=== PATIENT | male | born 1935 | race Caucasian/White ===

== ENCOUNTER 2022-03-27 12:26 | Inpatient (IN) | payer OTHER ==
[~2022-03-27] VITALS: Ht 177.8 cm; Wt 95.4 kg
[~2022-03-27 12:26] MED LIST: AMLO10 PO; CALCIUM; HCTZ; LISINOPRIL; [UNRECOGNIZED DRUG - OTHER]
[2022-03-27 12:44] LABS: BASOPHILS ABSOLUTE AUTO 0.04 K/mm3 (0.00-0.23); BASOPHILS PERCENT AUTO 0 % (0-2); EOSINOPHILS ABSOLUTE AUTO 0.13 K/mm3 (0.00-0.68); EOSINOPHILS PERCENT AUTO 1 % (0-6); Hematocrit 43.5 % (37.0-53.0); IMMATURE GRAN ABSOLUTE AUTO 0.04 K/mm3 (0.00-0.10); IMMATURE GRAN PERCENT AUTO 0 % (0-1); LYMPHOCYTES ABSOLUTE AUTO 2.57 K/mm3 (0.84-5.20); LYMPHOCYTES PERCENT AUTO 27 % (21-46); MONOCYTES ABSOLUTE AUTO 0.87 K/mm3 (0.16-1.47); MONOCYTES PERCENT AUTO 9 % (4-13); Mean Corpuscular HGB 30.9 pg (26.0-34.0); Mean Corpuscular HGB Conc 34.5 g/dL (31.5-36.5); Mean Corpuscular Volume 90 fL (80-100); Mean Platelet Volume 10.7 fL (9.1-12.4); NEUTROPHILS ABSOLUTE AUTO 5.91 K/mm3 (1.96-9.15); NEUTROPHILS PERCENT AUTO 62 % (41-73); Platelet Count 177 K/mm3 (150-400); RDW Coefficient Variation 13.6 % (11.7-14.2); RDW Standard Deviation 44.9 fL (35.1-46.3); Red Blood Cell Count 4.86 M/mm3 (4.30-5.90); White Blood Cell Count 9.56 K/mm3 (4.00-11.30)
[2022-03-27 13:11] LABS: Albumin, Blood 3.8 g/dL (3.4-5.0); Albumin/Globulin Ratio 1.2 (0.8-1.8); Bun/Creatinine Ratio 20.6 (12.0-20.0); Calcium, Blood 8.8 mg/dL (8.5-10.1); Creatinine, Blood 1.02 mg/dL (0.60-1.20); Globulin, Blood 3.3 g/dL (2.2-4.0); Potassium, Blood 3.4 mmol/L (3.5-5.5); Total Protein, Blood 7.1 g/dL (6.4-8.2)
[2022-03-27] MEDS ORDERED: ATOR10 PO (13:11)
[2022-03-27] MEDS ORDERED: CHLO25B PO (13:11)
[2022-03-27] MEDS ORDERED: FINA5 PO (13:12)
[2022-03-27] MEDS ORDERED: FURO20 PO (13:13)
[2022-03-27] MEDS ORDERED: LISI20 PO (13:14)
[2022-03-27] MEDS ORDERED: POTCHL20ER (13:16)
[2022-03-27] MEDS ORDERED: OMEPRAZOLE20 M1 PO (13:17)
[2022-03-27] MEDS ORDERED: LACT (13:21)
[2022-03-27 13:29] LABS: International Normalized Ratio 1.09; Prothrombin Time Results 11.4 Sec (9.7-11.5)
--- NOTE | 2022-03-27 16:46 | NUR ---
GOT REPORT FROM SHIVA. PT A&O TRANSFERED VIA iLike. FAMILY NOT PRESENT. PT ARRIVED @ 1625 AND TRANSFERED TO BED VIA SLIDE SHEET.
--- NOTE | 2022-03-28 05:27 | NUR ---
SHIFT SUMMARY: PT IS ALERT AND ORIENTED WITH INTERMITTENT CONFUSION. PT HAS L. SIDED WEAKNESS, MOSTLY IN HIS L. ARM. PT DID NOT USE HIS CALL LIGHT, SET OFF HIS BED ALARM ON SEVERAL OCCASIONS, EASILY REDIRECTABLE. PT REPORTS SELF-CATHETERIZATION @ HOME AND THE NEED TO URINATE, BLADDER SCAN PERFORMED AND STRAIGHT CATH WITH 800 OUT. PT DENIES PAIN, NAUSEA, VOMITING, AND SOB. BED IN LOW POSITION, CALL LIGHT WITHIN REACH, BED ALARM SET. WILL CONTINUE TO MONITOR.
[2022-03-28 06:02] LABS: CHOL/HDL RATIO 3.3; Cholesterol 116 mg/dL (50-200); HDL Cholesterol 35 mg/dL (>39); LDL/HDL RATIO 1.5; Low Density Lipoprotein Chol 53 mg/dL (0-110); Triglycerides 138 mg/dL (30-160); Very Low Density Lipoprot Chol 27 mg/dL (6-32)
--- NOTE | 2022-03-28 08:09 | NUR ---
NOTE: PT GIVEN BEDSIDE SWALLOW EVALUATION. PT WAS ABLE TO SWALLOW NECTAR THICK LIQUID WITHOUT COUGING AND SWALLOW APPROPRAITLY. PT HAS A ST CONSULTALTION REQUEST IN PLACE. PT IS TAKING MEDICATION WHOLE WITH APPLESAUCE AND DRINKING NECTAR THICK LIQUIDS.
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
--- NOTE | 2022-03-29 01:05 | NUR ---
SHIFT SUMMARY 86-YEAR-OLD MALE, A&O X2-3, NEEDS RE-ORIENT AT TIMES, WANDERED FROM ROOM. NEEDS BED AND CHAIR ALARM. 1-PERSON ASSIST, USES FWW. TELEMETRY SINUS RYTHYM WITH BBB. TAKES MEDICATIONS WHOLE IN APPLESAUCE. BRUISING AND SWELLING TO LEFT HAND. LEFT-SIDED DEFICIT POST CVA. DIET NECTOR THICK. PTN USES STRAIGHT CATH, NEEDS ASSIST DUE TO LEFT-HAND DEFICIT. LIKELY HOME TOMORROW WITH HH. CONTINUE TO MONITOR.
[2022-03-29 05:03] LABS: Bun/Creatinine Ratio 20.2 (12.0-20.0); Calcium, Blood 8.7 mg/dL (8.5-10.1); Creatinine, Blood 0.89 mg/dL (0.60-1.20); Potassium, Blood 3.6 mmol/L (3.5-5.5)
--- NOTE | 2022-03-29 05:37 | NUR ---
03/29/22 0530 Patient bladder scanned for 483. Patient straight cathed for just under 500cc of dk yellow, strong smelling urine, urine is sl cloudy. Patient has been resting the last few hours. 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 Pt states he is doing the arm lifts as taught. Possible DC to [facility] with home health.
[2022-03-29] MEDS ORDERED: CLOP75 PO (17:53)
[2022-03-29] MEDS ORDERED: ASPI81CH PO (17:53)
[2022-03-29] MEDS ORDERED: PANT40 PO (17:53)
[2022-03-29] MEDS ORDERED: ATOR80 PO (17:54)
--- NOTE | 2022-03-29 19:32 | NUR ---
DICHARGE SUMMARY: PT AND EDUCATED ON DISCHARGE INSTRUCTIONS, MEDICATIONS AND SWALLOW PRECAUTIONS. ADVISED TO GET THICKET AT PHARMACY STORE. PT AND VU. SENT NECTAR THICK LIQUIDS X 3 JUICES WITH PT. ASSISTED PT WITH PACKING UP BELONGINGS. PT ESCORTED TO POV VIA WC WITH AND SON.
== END 2022-03-29 18:18 | disposition home health service (06) | DRG 65 ==
LOC: ER 12:26 → MEDS 14:57
PROVIDERS: Family Medicine; Student in an Organized Health Care Education/Training Program; ADMIT Hospitalist
DX: I63.511 Cerebral infarction due to unspecified occlusion or stenosis of right middle cerebral artery (principal); G81.94 Hemiplegia, unspecified affecting left nondominant side; Z66 Do not resuscitate; I10 Essential (primary) hypertension; E78.00 Pure hypercholesterolemia, unspecified; N40.0 Benign prostatic hyperplasia without lower urinary tract symptoms; K21.9 Gastro-esophageal reflux disease without esophagitis; R29.810 Facial weakness; E04.1 Nontoxic single thyroid nodule; R47.81 Slurred speech; R47.1 Dysarthria and anarthria; Z79.899 Other long term (current) drug therapy; W18.39XA Other fall on same level, initial encounter; Y92.59 Other trade areas as the place of occurrence of the external cause
CPT/HCPCS: 36415; 70450; 70496; 70498; 70551; 80048; 80053; 80061; 83036; 85025; 85610; 85730; 86850; 86900; 86901; 92610; 97110; 97112; 97116; 97161; 99285-25; A9270; C8929; J1650; Q9957; Q9967

== ENCOUNTER → 2023-03-30 | Outpatient (CLI) | payer OTHER ==
[~2023-03-30] MED LIST changes: +ASPI81CH PO; +ATOR10 PO; +ATOR80 PO; +CHLO25B PO; +CLOP75 PO; +FINA5 PO; +FURO20 PO; +LACT; +LISI20 PO; +OMEPRAZOLE20 M1 PO; +PANT40 PO; +POTCHL20ER
== END | disposition home or self-care (01) ==
LOC: LAB SHORT 14:00 → LAB 14:00
DX: L08.9 Local infection of the skin and subcutaneous tissue, unspecified (principal)
CPT/HCPCS: 87070; 87077; 87186; 87205

== ENCOUNTER 2023-07-30 11:34 | Inpatient (IN) | payer OTHER ==
[~2023-07-30] VITALS: Ht 177.8 cm; Wt 90.0 kg
[2023-07-30] MEDS ORDERED: LIDO700A20 TOP (11:44)
[2023-07-30 12:56] LABS: Source, Urine Foley catheter
[2023-07-30 13:03] LABS: Appearance, Urine Cloudy (Clear); Bilirubin, Urine Neg (Neg); Blood, Urine 4+ (Neg); Color, Urine Yellow (P-Yellow); Glucose Qualitative, Urine Neg (Neg); Ketones, Urine 2+ (Neg); Leukocyte Esterase, Urine 2+ (Neg); Nitrite, Urine Neg (Neg); Protein, Urine 3+ (Neg); Specific Gravity, Urine 1.015 (1.003-1.022); Urobilinogen, Urine NORM (Normal)
[2023-07-30 13:19] LABS: Bacteria Many /hpf; Squamous Epithelial Cells Not Seen /hpf (Few)
[2023-07-30 13:58] LABS: Albumin, Blood 3.1 g/dL (3.4-5.0); Albumin/Globulin Ratio 0.9 (0.8-1.8); Bilirubin, Total 1.6 mg/dL (0.1-1.0); Creatinine, Blood 0.77 mg/dL (0.60-1.20); Globulin, Blood 3.5 g/dL (2.2-4.0); Potassium, Blood 4.1 mmol/L (3.5-5.5); Total Protein, Blood 6.6 g/dL (6.4-8.2)
[2023-07-30 15:01] LABS: BASOPHILS ABSOLUTE AUTO 0.03 K/mm3 (0.00-0.23); BASOPHILS PERCENT AUTO 0 % (0-2); EOSINOPHILS PERCENT AUTO 0 % (0-6); Hematocrit 38.2 % (37.0-53.0); Hemoglobin 13.1 g/dL (13.5-17.5); IMMATURE GRAN ABSOLUTE AUTO 0.06 K/mm3 (0.00-0.10); IMMATURE GRAN PERCENT AUTO 0 % (0-1); LYMPHOCYTES ABSOLUTE AUTO 0.72 K/mm3 (0.84-5.20); LYMPHOCYTES PERCENT AUTO 5 % (21-46); MONOCYTES ABSOLUTE AUTO 1.04 K/mm3 (0.16-1.47); MONOCYTES PERCENT AUTO 8 % (4-13); Mean Corpuscular HGB 31.3 pg (26.0-34.0); Mean Corpuscular HGB Conc 34.3 g/dL (31.5-36.5); Mean Corpuscular Volume 91 fL (80-100); Mean Platelet Volume 10.4 fL (9.1-12.4); NEUTROPHILS ABSOLUTE AUTO 11.94 K/mm3 (1.96-9.15); NEUTROPHILS PERCENT AUTO 87 % (41-73); Platelet Count 169 K/mm3 (150-400); RDW Coefficient Variation 14.5 % (11.7-14.2); RDW Standard Deviation 48.3 fL (35.1-46.3); Red Blood Cell Count 4.18 M/mm3 (4.30-5.90); White Blood Cell Count 13.79 K/mm3 (4.00-11.30)
[2023-07-30 15:20] LABS: Base Excess Venous 1.4 mmol/L; Bicarbonate Venous 25.6 mmol/L (24.0-30.0); PCO2 Venous 38.8 mmHg (38-42); pH Blood Venous 7.44 (7.34-7.37)
[2023-07-30 15:34] LABS: Albumin, Blood 3.2 g/dL (3.4-5.0); Albumin/Globulin Ratio 0.9 (0.8-1.8); Bilirubin, Direct 0.4 mg/dL (0.0-0.3); Bilirubin, Indirect 1.1 mg/dL (0.1-0.7); Bilirubin, Total 1.5 mg/dL (0.1-1.0); Globulin, Blood 3.5 g/dL (2.2-4.0); Total Protein, Blood 6.7 g/dL (6.4-8.2)
[2023-07-30 20:03] VITALS: BP 154/85
[2023-07-31 03:48] VITALS: BP 134/63
--- NOTE | 2023-07-31 05:16 | NUR ---
REPORT FROM ER RECEIEVED PT A/O X2 VERY PLEASENT AND COOPERATIVE, STATES HE KNOWS HE IS CONFUSED BECAUSE HE DIDNT KNOW WHERE HE WAS, BUT WAS ABLE TO TELL ME THE MONTH AND YEAR. NEW IV STARTED TO RIGHT FOREARM PT HAS HX OF STRIGHT CATHING SO I WILL WAIT UNTIL 3 TO CHECK WITHA BLADDER SCANNER. ADMISSION DONE. 0330 BLADDER SCANNER USED ON PT 195MLS NOTED PT STATED HE HASNT DRANK ANYTHING ALL DAY AND THEN REFUSED ANY WATER. PT KNOWS WHERE HE IS AT NOW AND HAS BEEN ANSWERING QUESTIONS APPROPRIATLY. WILL ATTEMPT TO SLEEP A LITTL LONGER BEFORE DAY STARTS.
[2023-07-31 05:26] LABS: Hematocrit 33.1 % (37.0-53.0); Mean Corpuscular HGB 31.1 pg (26.0-34.0); Mean Corpuscular HGB Conc 33.2 g/dL (31.5-36.5); Mean Corpuscular Volume 94 fL (80-100); Mean Platelet Volume 11.2 fL (9.1-12.4); Platelet Count 140 K/mm3 (150-400); RDW Coefficient Variation 14.5 % (11.7-14.2); RDW Standard Deviation 49.6 fL (35.1-46.3); Red Blood Cell Count 3.54 M/mm3 (4.30-5.90); White Blood Cell Count 7.13 K/mm3 (4.00-11.30)
[2023-07-31 05:59] LABS: Albumin, Blood 2.5 g/dL (3.4-5.0); Albumin/Globulin Ratio 0.8 (0.8-1.8); Bilirubin, Total 1.1 mg/dL (0.1-1.0); Bun/Creatinine Ratio 19.7 (12.0-20.0); Calcium, Blood 7.6 mg/dL (8.5-10.1); Creatinine, Blood 0.76 mg/dL (0.60-1.20); Potassium, Blood 3.7 mmol/L (3.5-5.5); Total Protein, Blood 5.5 g/dL (6.4-8.2)
[2023-07-31 08:21] VITALS: BP 139/70
[2023-07-31] MEDS ORDERED: ASPI81CH PO (11:16)
[2023-07-31] MEDS ORDERED: FURO20 PO (11:17)
[2023-07-31] MEDS ORDERED: ATORVASTATIN CA80 M1 PO (11:18)
[2023-07-31] MEDS ORDERED: FINA5 PO (11:18)
[2023-07-31] MEDS ORDERED: METF500 PO (11:19)
[2023-07-31] MEDS ORDERED: AMLO10 PO (11:20)
[2023-07-31] MEDS ORDERED: PANT40 PO (11:21)
[2023-07-31] MEDS ORDERED: LISI20 PO (11:21)
[2023-07-31] MEDS ORDERED: POTCHL20ER PO (11:22)
[2023-07-31] MEDS ORDERED: PRESERVISION A1 EAC1 PO (11:23)
[2023-07-31 15:58] VITALS: BP 150/75
--- NOTE | 2023-07-31 18:07 | NUR ---
PT WAS RETAINING SOME 200 CC URINE THIS AM PRIOR TO MY SHIFT. PT STATES HE USUALLY SELF CATHS 3-4 TIMES DAILY. AFFTER DISCUSSING WITH ORDERS FOR RAY CATH OBTAINED AND RAY PLACED. YELLOW FLUID DRAINING TO GRAVITY. PT STATES PAIN IN BACK THIS AFT, TRIED TORADOL AND HE STATES GOOD IMPROVEMENT. HE IS STILL WEAK AND NEEDS 1-2 ASSISTANCE TO GET UP. BED IN LOW POSITIOIN, CALL LITE IN REACH, CALLS APPROP
[2023-07-31 20:54] VITALS: BP 152/86
[2023-08-01 04:26] VITALS: BP 160/72
--- NOTE | 2023-08-01 04:51 | NUR ---
PATIENT IS ALERT AND ORIENTED X2, ON ROOM AIR. WITH PICC LINE ON RIGHT UPPER EXTREMITY, PIV ON RIGHT WRIST AND LEFT FA PATENT AND INTACT. WITH RAY CATHETER DRAINIG WELL. BRUISE NOTED FROM SHOULDER TO HAND. NO COMPLAINTS MADE. NEEDS ATTENDED. WILL CONTIUNE TO MONITOR.
[2023-08-01 05:53] LABS: BASOPHILS ABSOLUTE AUTO 0.04 K/mm3 (0.00-0.23); BASOPHILS PERCENT AUTO 1 % (0-2); EOSINOPHILS ABSOLUTE AUTO 0.13 K/mm3 (0.00-0.68); EOSINOPHILS PERCENT AUTO 2 % (0-6); Hematocrit 35.1 % (37.0-53.0); Hemoglobin 11.8 g/dL (13.5-17.5); IMMATURE GRAN ABSOLUTE AUTO 0.04 K/mm3 (0.00-0.10); IMMATURE GRAN PERCENT AUTO 1 % (0-1); LYMPHOCYTES ABSOLUTE AUTO 0.73 K/mm3 (0.84-5.20); LYMPHOCYTES PERCENT AUTO 8 % (21-46); MONOCYTES ABSOLUTE AUTO 0.67 K/mm3 (0.16-1.47); MONOCYTES PERCENT AUTO 8 % (4-13); Mean Corpuscular HGB 31.1 pg (26.0-34.0); Mean Corpuscular HGB Conc 33.6 g/dL (31.5-36.5); Mean Corpuscular Volume 93 fL (80-100); Mean Platelet Volume 10.5 fL (9.1-12.4); NEUTROPHILS ABSOLUTE AUTO 7.27 K/mm3 (1.96-9.15); NEUTROPHILS PERCENT AUTO 82 % (41-73); Platelet Count 144 K/mm3 (150-400); RDW Coefficient Variation 14.5 % (11.7-14.2); RDW Standard Deviation 49.4 fL (35.1-46.3); Red Blood Cell Count 3.79 M/mm3 (4.30-5.90); White Blood Cell Count 8.88 K/mm3 (4.00-11.30)
[2023-08-01 06:10] LABS: Bun/Creatinine Ratio 24.3 (12.0-20.0); Calcium, Blood 7.8 mg/dL (8.5-10.1); Creatinine, Blood 0.62 mg/dL (0.60-1.20); Potassium, Blood 3.4 mmol/L (3.5-5.5)
[2023-08-01 08:05] VITALS: BP 149/75
[2023-08-01 13:43] LABS: HAPTOGLOBIN 85 mg/dL (30-200)
[2023-08-01 16:35] VITALS: BP 157/75
--- NOTE | 2023-08-01 18:47 | NUR ---
SHIFT SUMMARY; PATIENT SLEPT MOST OF DAY. WAKES TO ASK FOR PAIN MEDICATION. TORADOL PROVIDED X 2 TODAY. DOES ORDER NORCO FOR PAIN IF NEEDED. PATIENT HAS MUCH CONFUSION THIS EARLY AFTERNOON SO DECISION TO HOLD NORCO TILL MENTATION CLEARS. THIS EVENING PATIENT REFUSES EVENING MEAL STATES "HE IS NOT HUNGRY" HE WILL CALL LATER IF HE WANTS BROTH OR A SANDWICH. FAMILY AT BEDSIDE MOST OF DAY. NOTED THAT PATIENTS RIGHT ARM NOW HAS EDEMA MATCHING LEFT ARM. ULTRASOUNDS OF BILATERAL UPPER EXTREMITIES ARE ORDERED AND RESULTS ARE NEGATIVE. PATIENT IS GIVEN LASIX AT 1800 TONIGHT.
[2023-08-01 21:15] VITALS: BP 146/72
--- NOTE | 2023-08-02 04:56 | NUR ---
PATIENT IS ALERT AND ORIENTED. ON ROOM AIR. WITH POWERGLIDE ON RIGHT UPPER ARM, PIV ON RIGHT FA, LEFT FA. WITH RAY CATHETER DRAINING WELL. NEEDS ATTENDED. CALL LIGHT WITHIN PATIENT'S REACH. WILL CONTINUE TO MONITOR.
[2023-08-02 05:22] VITALS: BP 153/74
[2023-08-02 05:34] LABS: BASOPHILS ABSOLUTE AUTO 0.04 K/mm3 (0.00-0.23); BASOPHILS PERCENT AUTO 1 % (0-2); EOSINOPHILS ABSOLUTE AUTO 0.12 K/mm3 (0.00-0.68); EOSINOPHILS PERCENT AUTO 2 % (0-6); Hematocrit 35.1 % (37.0-53.0); Hemoglobin 11.7 g/dL (13.5-17.5); IMMATURE GRAN ABSOLUTE AUTO 0.03 K/mm3 (0.00-0.10); IMMATURE GRAN PERCENT AUTO 0 % (0-1); LYMPHOCYTES ABSOLUTE AUTO 0.78 K/mm3 (0.84-5.20); LYMPHOCYTES PERCENT AUTO 12 % (21-46); MONOCYTES ABSOLUTE AUTO 0.59 K/mm3 (0.16-1.47); MONOCYTES PERCENT AUTO 9 % (4-13); Mean Corpuscular HGB 31.1 pg (26.0-34.0); Mean Corpuscular HGB Conc 33.3 g/dL (31.5-36.5); Mean Corpuscular Volume 93 fL (80-100); Mean Platelet Volume 10.4 fL (9.1-12.4); NEUTROPHILS PERCENT AUTO 77 % (41-73); Platelet Count 137 K/mm3 (150-400); RDW Coefficient Variation 14.6 % (11.7-14.2); RDW Standard Deviation 49.7 fL (35.1-46.3); Red Blood Cell Count 3.76 M/mm3 (4.30-5.90); White Blood Cell Count 6.76 K/mm3 (4.00-11.30)
[2023-08-02 06:00] LABS: Bun/Creatinine Ratio 20.8 (12.0-20.0); Calcium, Blood 7.9 mg/dL (8.5-10.1); Creatinine, Blood 0.77 mg/dL (0.60-1.20); Potassium, Blood 3.1 mmol/L (3.5-5.5)
[2023-08-02 07:40] VITALS: BP 147/61
[2023-08-02] MEDS ORDERED: Cefdinir300 MG PO (14:20)
== END 2023-08-02 15:55 | disposition home health service (06) | DRG 698 ==
LOC: ER 11:34 → MEDS 18:00
PROVIDERS: Hospitalist; Nurse Practitioner Acute Care; Student in an Organized Health Care Education/Training Program; ADMIT Internal Medicine
DX: T83.511A Infection and inflammatory reaction due to indwelling urethral catheter, initial encounter (principal); A40.8 Other streptococcal sepsis; N39.0 Urinary tract infection, site not specified; N40.1 Benign prostatic hyperplasia with lower urinary tract symptoms; R33.8 Other retention of urine; I10 Essential (primary) hypertension; Z66 Do not resuscitate; E78.00 Pure hypercholesterolemia, unspecified; K21.9 Gastro-esophageal reflux disease without esophagitis; G89.29 Other chronic pain; M54.9 Dorsalgia, unspecified; I69.312 Visuospatial deficit and spatial neglect following cerebral infarction; E80.6 Other disorders of bilirubin metabolism; R94.31 Abnormal electrocardiogram [ECG] [EKG]; H54.61 Unqualified visual loss, right eye, normal vision left eye; Z91.81 History of falling
CPT/HCPCS: 36415; 51701; 70450; 80048; 80053; 80076; 81001; 82803; 83010; 83605; 83615; 85025; 85027; 87086; 93005; 93010; 93970; 96361-59; 96365-59; 97116; 97161; 97165; 97530; 97535; 99285-25; A9270; J0696; J1650; J1885; J1940; J2405; J7030

== ENCOUNTER 2023-08-06 17:23 | Emergency (ER) | payer OTHER ==
[~2023-08-06] VITALS: Ht 177.8 cm; Wt 104.3 kg
[~2023-08-06 17:23] MED LIST changes: +ATORVASTATIN CA80 M1 PO; +Cefdinir300 MG PO; +LIDO700A20 TOP; +METF500 PO; +POTCHL20ER PO; +PRESERVISION A1 EAC1 PO
[2023-08-06 18:56] LABS: BASOPHILS ABSOLUTE AUTO 0.06 K/mm3 (0.00-0.23); BASOPHILS PERCENT AUTO 1 % (0-2); EOSINOPHILS ABSOLUTE AUTO 0.07 K/mm3 (0.00-0.68); EOSINOPHILS PERCENT AUTO 1 % (0-6); Hematocrit 39.4 % (37.0-53.0); Hemoglobin 13.3 g/dL (13.5-17.5); IMMATURE GRAN ABSOLUTE AUTO 0.06 K/mm3 (0.00-0.10); IMMATURE GRAN PERCENT AUTO 1 % (0-1); LYMPHOCYTES ABSOLUTE AUTO 1.37 K/mm3 (0.84-5.20); LYMPHOCYTES PERCENT AUTO 14 % (21-46); MONOCYTES ABSOLUTE AUTO 0.84 K/mm3 (0.16-1.47); MONOCYTES PERCENT AUTO 8 % (4-13); Mean Corpuscular HGB Conc 33.8 g/dL (31.5-36.5); Mean Corpuscular Volume 92 fL (80-100); Mean Platelet Volume 10.5 fL (9.1-12.4); NEUTROPHILS ABSOLUTE AUTO 7.58 K/mm3 (1.96-9.15); NEUTROPHILS PERCENT AUTO 76 % (41-73); Platelet Count 179 K/mm3 (150-400); RDW Coefficient Variation 14.6 % (11.7-14.2); RDW Standard Deviation 48.6 fL (35.1-46.3); Red Blood Cell Count 4.29 M/mm3 (4.30-5.90); White Blood Cell Count 9.98 K/mm3 (4.00-11.30)
[2023-08-06 19:27] LABS: Albumin, Blood 2.9 g/dL (3.4-5.0); Albumin/Globulin Ratio 0.8 (0.8-1.8); Bilirubin, Total 1.1 mg/dL (0.1-1.0); Bun/Creatinine Ratio 25.9 (12.0-20.0); Calcium, Blood 8.2 mg/dL (8.5-10.1); Creatinine, Blood 0.62 mg/dL (0.60-1.20); Globulin, Blood 3.7 g/dL (2.2-4.0); Potassium, Blood 3.2 mmol/L (3.5-5.5); Total Protein, Blood 6.6 g/dL (6.4-8.2)
[2023-08-06 20:15] LABS: Source, Urine Clean Catch
[2023-08-06 20:17] LABS: Appearance, Urine Clear (Clear); Bilirubin, Urine Neg (Neg); Blood, Urine 4+ (Neg); Color, Urine Yellow (P-Yellow); Glucose Qualitative, Urine Neg (Neg); Ketones, Urine 3+ (Neg); Leukocyte Esterase, Urine Neg (Neg); Nitrite, Urine Neg (Neg); Protein, Urine 2+ (Neg); Urobilinogen, Urine NORM (Normal)
[2023-08-06 20:23] LABS: Amorphous Light (0-Heavy); Bacteria Rare /hpf; Mucus Light (0-Heavy); Red Blood Cells, Urine 25-50 /hpf (0-2); Squamous Epithelial Cells Few /hpf (Few); White Blood Cells, Urine 0-2 /hpf (0-5)
[2023-08-06 20:40] LABS: Influenza A, PCR NEGATIVE (NEGATIVE); Influenza B, PCR NEGATIVE (NEGATIVE); Resp Syncytial Virus, PCR NEGATIVE (NEGATIVE); SARS-Cov-2 (COVID-19) PCR, MMC NEGATIVE (NEGATIVE)
[2023-08-07] MEDS ORDERED: DOC250 PO (15:51)
[2023-08-07] MEDS ORDERED: HYDR1TAB94 PO (15:51)
[2023-08-07 16:00] VITALS: BP 135/58
== END 2023-08-07 16:39 | disposition home or self-care (01) ==
LOC: ER 17:23
PROVIDERS: Emergency Medicine
DX: R33.9 Retention of urine, unspecified (principal); I10 Essential (primary) hypertension; E78.00 Pure hypercholesterolemia, unspecified; Z79.899 Other long term (current) drug therapy; Z79.82 Long term (current) use of aspirin; Z79.84 Long term (current) use of oral hypoglycemic drugs
CPT/HCPCS: 0241U; 51702; 72100; 80053; 81001; 85025; 99284-25; A9270